=== PATIENT | female | born 1950 ===

== ENCOUNTER 2020-12-02 05:40 | Day surgery (SDC) | payer OTHER ==
[~2020-12-02 05:40] MED LIST: FOSAMAX PLUS D1 EACH PO; LEVOTHYROXINE25 MCG PO; PROTON PO; SIMVAST PO; VITAMIN C100 MG PO; VITAMIN D310 MCG/1 M PO
[2020-12-02] MEDS ORDERED: MACROBID 100 M100 MG PO (09:41)
[2020-12-02] MEDS ORDERED: ACETAMINOPHEN-1 EAC2 PO (09:42)
== END 2020-12-02 12:55 | disposition home or self-care (01) ==
LOC: CIR.AMB 05:40
PROVIDERS: ATTEND Obstetrics & Gynecology Gynecology
DX: N81.3 Complete uterovaginal prolapse (principal); Z20.822 Contact with and (suspected) exposure to COVID-19